=== PATIENT | male | born 1980 | race Caucasian/White ===

== ENCOUNTER 2020-09-25 20:03 | Emergency (ER) | payer OTHER ==
[2016-02-06 19:40] VITALS: BP 143/99
[~2020-09-25] VITALS: Ht 193 cm; Wt 118.0 kg
--- NOTE | 2020-09-25 21:08 | PHYS DOC ---
Past Medical History Past Medical History: No Pertinent History, IBS Additional Past Medical Histor: insomnia Past Surgical History: Tonsillectomy Additional Past Surgical Histo: L chest lypoma, R wrist fx Smoking Status: Never Smoker Alcohol Use: Occasionally Drug Use: None General Adult EDM: Chief Complaint: KNEE INJURY HPI: HPI: Patient is a 40 year old male with no significant medical history who presents to the ED today complaining of 2 out of 10 left knee pain that began around 1300 today. [place] hype[place]xtending his left knee. Review of Systems: Review of Systems: Constitutional: Denies fever or chills. [] Musculoskeletal: Reports left knee pain. Denies back pain Integument: Denies rash. [] Neurologic: Denies headache, focal weakness or sensory changes. [] Psychiatric: Denies depression or anxiety. [] Heart Score: C/O Chest Pain: N/A Risk Factors: Risk Factors: DM, Current or recent (<one month) smoker, HTN, HLP, family history of CAD, obesity. Risk Scores: Score 0 - 3: 2.5% MACE over next 6 weeks - Discharge Home Score 4 - 6: 20.3% MACE over next 6 weeks - Admit for Clinical Observation Score 7 - 10: 72.7% MACE over next 6 weeks - Early Invasive Strategies Allergies: Allergies: Allergies Coded Allergies Type Severity Reaction Last Updated Verified No Known Drug Allergies 10/12/14 No Physical Exam: PE: Constitutional: Well developed, well nourished, no acute distress, non-toxic appearance. [] Skin: Warm, dry, no erythema, no rash. [] Back: No tenderness, no CVA tenderness. [] Extremities: Left anterior knee with small amount of soft tissue swelling and tenderness to the medial aspect of the knee. Full range of motion to the left knee. Negative Justin sign, negative Harris sign, negative anterior post erior drawer sign. +2 left pedal pulse. Cap refill less than 2 seconds to left lower extremity Neurologic: Alert and oriented X 3, normal motor function, normal sensory function, no focal deficits noted. [] Psychologic: Affect normal, judgement normal, mood normal. [] Current Patient Data: Vital Signs: Vital Signs Date Time Temp Pulse Resp B/P (MAP) Pulse Ox O2 Delivery O2 Flow Rate FiO2 09/25/20 20:09 98.7 70 16 157/96 100 Room Air 98.7 EKG: EKG: [] Radiology/Procedures: Radiology/Procedures: []PROCEDURE: KNEE LEFT 4V XR KNEE _4 VIEWS WITH PATELLA_LT History: Reason: LT knee pain / Spl. Instructions: / History: Technique: 3 views left knee. Comparison: None. Findings: Normal alignment. No acute fracture. No significant knee joint effusion. Impression: 1. No acute osseous abnormality. Electronically signed by: Blayne Braun DO (09/25/2020 9:15 PM) [facility] DICTATED and SIGNED BY: BLAYNE BRAUN DO DATE: 09/25/20 [id number] 0 Course & Med Decision Making: Course & Med Decision Making Pertinent Labs and Imaging studies reviewed. (See chart for details) This a 40-year-old male patient presented to the ED today with left knee pain after slipping on ice and hyperextending the left knee. Left knee x-rays interpreted by radiologist are negative for any acute findings. Discharge to home. Follow-up with orthopedic doctor in 1 week. Dragon Disclaimer: Dragraffaele Disclaimer: This electronic medical record was generated, in whole or in part, using a voice recognition dictation system. Departure Departure Impression: Primary Impression: Left knee pain Qualified Codes: M25.562 - Pain in left knee Disposition: 01 HOME / SELF CARE / HOMELESS Condition: STABLE Referrals: HARI REYNA MD (PCP) STEVEN ROBLES DO follow up in one week Patient Instructions: Knee Pain Additional Instructions: Your left knee x-rays are negative for any acute findings. Try to ice and elevate the extremity. You can use an Prabhu bandage on the knee. You can take [id number] anti-inflammatories as needed for pain. Please contact the provided orthopedic doctor on follow-up in 1 week ARMEN ARANGO APRN Sep 25, 2020 21:08
--- NOTE | 2020-09-25 21:17 | RAD ---
XR KNEE _4 VIEWS WITH PATELLA_LT History: Reason: LT knee pain / Spl. Instructions: / History: Technique: 3 views left knee. Comparison: None. Findings: Normal alignment. No acute fracture. No significant knee joint effusion. Impression: 1. No acute osseous abnormality. Electronically signed by: Blayne Braun DO (09/25/2020 9:15 PM) [facility] [place]
== END 2020-09-25 22:07 | disposition home or self-care (01) ==
LOC: ER 20:03
DX: M25.562 Pain in left knee (principal); G89.11 Acute pain due to trauma; K58.9 Irritable bowel syndrome, unspecified; W00.0XXA Fall on same level due to ice and snow, initial encounter; Y93.89 Activity, other specified; Y92.89 Other specified places as the place of occurrence of the external cause; Y99.8 Other external cause status
CPT/HCPCS: 73564; 99283